=== PATIENT | female | born 1970 | race Caucasian/White ===

== ENCOUNTER 2022-07-27 04:31 | Inpatient (IN) | payer OTHER ==
[~2022-07-27] VITALS: Ht 165.1 cm; Wt 92.0 kg
[2022-07-27] VITALS (9 sets, daily range): BP systolic 98–162; BP diastolic 46–88
[2022-07-27 05:11] LABS: Basophils # (auto) 0.1 10 ^3/uL (0-0.2); Basophils % (auto) 0.9 % (0.0-2.0); Eosinophils # (auto) 0.1 10 ^3/uL (0-0.8); Eosinophils % (auto) 0.8 % (0.0-7.0); Hematocrit 42.8 % (36.0-46.0); Lymphocytes # (auto) 1.7 10 ^3/uL (0.4-5.4); Lymphocytes % (auto) 23.8 % (10.0-50.0); Mean Corpuscular Hemoglobin 30.8 pg (28.0-32.0); Monocytes # (auto) 0.5 10 ^3/uL (0-1.3); Monocytes % (auto) 6.3 % (0.0-12.0); Neutrophils # (auto) 4.9 10 ^3/uL (1.6-8.6); Neutrophils % (auto) 68.2 % (37.0-80.0); Nucleated Red Blood Cells % 0.1 %; Red Blood Cells 4.87 10^6/uL (4.0-5.20); Red Cell Distribution Width 14.5 % (11.8-14.3); White Blood Cell 7.2 10^3/uL (4.4-10.8)
[2022-07-27 05:34] LABS: Calcium 8.9 mg/dL (8.5-10.1)
[2022-07-27 05:39] LABS: BUN/Creatinine Ratio 25.4; Bilirubin, Total 0.5 mg/dL (0.2-1.0); Total Protein 7.1 g/dL (6.4-8.2)
[2022-07-27] MEDS ORDERED: HEPARIN SODIUM (PORCINE) 5000 UNITS/ML 1ML VIAL IV ONE ×2 (06:00)
[2022-07-27] MEDS ORDERED: CLOPIDOGREL BISULFATE 75 MG TAB PO ONE (06:00)
[2022-07-27] MEDS ORDERED: HEPARIN DRIP/D5W 100UNITS/ML 250 ML IV SCH ×2 (06:00→07:00)
[2022-07-27] MEDS ORDERED: NITROGLYCERIN 0.4 MG SL TAB SL ONE (06:00)
[2022-07-27 06:04] LABS: Urine Bacteria FEW /hpf (None Seen); Urine Blood Negative /uL (Negative); Urine Mucus FEW (None Seen); Urine Specific Gravity 1.015 (1.001-1.035); Urine WBC <1 /hpf (0 - 5)
[2022-07-27] MEDS ORDERED: CLOPIDOGREL BISULFATE 75 MG TAB ONE ×2 (06:15→06:16)
[2022-07-27] MEDS ORDERED: HEPARIN SODIUM (PORCINE) 5000 UNITS/ML 1ML VIAL ONE (06:24)
[2022-07-27] MEDS ORDERED: ANGIOMAX 250 MG VIAL IV ONE ×2 (06:24→10:00)
[2022-07-27] MEDS ORDERED: SODIUM CHL 0.9% 50 ML ONE ×2 (06:25→10:00)
[2022-07-27] MEDS ORDERED: VERAPAMIL 2.5MG/ML INJ 2ML VIAL IV ONE ×2 (06:25→09:34)
[2022-07-27] MEDS ORDERED: fentaNYL CITRATE 100 MCG/2 ML VL ONE (06:25)
[2022-07-27] MEDS ORDERED: LIDOCAINE 2%HCL (LOCAL ANESTH.) INJ 10ml MDV ONE ×2 (06:25→09:38)
[2022-07-27] MEDS ORDERED: HEPARIN IN NS 1000Units/500mL 0 ML ONE (06:25)
[2022-07-27] MEDS ORDERED: MIDAZOLAM HCL 2MG/2ML 2ml VIAL (1mg/ml) ONE (06:25)
[2022-07-27] MEDS ORDERED: IODIXANOL 320MG/ML 100ML BTL IV ONE ×3 (06:25→10:07)
[2022-07-27] MEDS ORDERED: ATROPINE SULF 1 MG/10ml SYR ONE (06:26)
[2022-07-27 07:42] LABS: INR 0.94 (0.9-1.15); Partial Thromboplastin Time 27.8 sec (24.6-33.4)
[2022-07-27] MEDS ORDERED: ASPirin 325 MG TAB PO ONE (08:30)
[2022-07-27] MEDS ORDERED: MORPHINE SULFATE INJ 2 MG/ml SYRG IV PRN (10:30)
[2022-07-27] MEDS ORDERED: NITROGLYCERIN 0.4 MG SL TAB SL PRN (10:30)
[2022-07-27] MEDS ORDERED: HYDROcodone-ACET 5/325MG TAB PO PRN (16:30)
[2022-07-27] MEDS: ACETAMINOPHEN 325 MG TAB PO PRN (17:14)
[2022-07-27] MEDS ORDERED: ATORVASTATIN 20 MG TAB PO SCH (22:00)
[2022-07-28 05:00] VITALS: BP 141/70
[2022-07-28 08:57] VITALS: BP 147/67
[2022-07-28] MEDS ORDERED: ASPirin 81 mg TAB PO SCH (10:00)
[2022-07-28] MEDS ORDERED: LISINOPRIL 5 MG TAB PO SCH (10:00)
[2022-07-28] MEDS ORDERED: dilTIAZem 120MG ER CAP PO SCH (10:00)
[2022-07-28] MEDS ORDERED: CLOPIDOGREL BISULFATE 75 MG TAB PO SCH (10:00)
[2022-07-28 10:57] LABS: BUN/Creatinine Ratio 14.3; Calcium 8.9 mg/dL (8.5-10.1); Potassium 3.8 mmol/L (3.5-5.1)
[2022-07-28 12:20] LABS: Cholesterol 225 mg/dL (< 200); HDL Cholesterol 108 mg/dL (40-59); LDL Cholesterol 112 mg/dL (< 100); Triglycerides 53 mg/dL (< 150)
[2022-07-28] MEDS ORDERED: SACU1TAB PO ×2 (13:07→14:44)
[2022-07-28] MEDS ORDERED: ATO40T PO ×2 (13:07→14:44)
[2022-07-28] MEDS ORDERED: ASPI-498 PO ×2 (13:07→14:44)
[2022-07-28] MEDS ORDERED: CLOP75TA28 PO ×2 (13:07→14:44)
[2022-07-28] MEDS ORDERED: CAR125T PO (13:07)
[2022-07-28] MEDS: ACETAMINOPHEN 325 MG TAB PO PRN (13:37)
[2022-07-28] MEDS ORDERED: CARV6.25 PO (14:44)
[2022-07-28 17:00] VITALS: BP 123/76
[2022-07-28] MEDS ORDERED: CARVEDILOL 12.5 MG TAB PO SCH (22:00)
[2022-07-29] MEDS ORDERED: SACUBITRIL-VALSARTAN 24mg/26mg TAB PO SCH (22:00)
== END 2022-07-28 18:45 | disposition home or self-care (01) | DRG 246 ==
LOC: ER 04:31 → CATH 1 09:32 → WEST WING 11:50 → TELE-WESTW 12:21
PROVIDERS: ADMIT Internal Medicine; ATTEND Internal Medicine
PROC: 4A023N7 Measurement of Cardiac Sampling and Pressure, Left Heart, Percutaneous Approach (ICD-10-PCS; principal; 2022-07-27)
PROC: 027034Z Dilation of Coronary Artery, One Artery with Drug-eluting Intraluminal Device, Percutaneous Approach (ICD-10-PCS; 2022-07-27)
PROC: B211YZZ Fluoroscopy of Multiple Coronary Arteries using Other Contrast (ICD-10-PCS; 2022-07-27)
PROC: B215YZZ Fluoroscopy of Left Heart using Other Contrast (ICD-10-PCS; 2022-07-27)
PROC: B240ZZ3 Ultrasonography of Single Coronary Artery, Intravascular (ICD-10-PCS; 2022-07-27)
DX: I21.4 Non-ST elevation (NSTEMI) myocardial infarction (principal); I50.31 Acute diastolic (congestive) heart failure; Z20.822 Contact with and (suspected) exposure to COVID-19; E78.00 Pure hypercholesterolemia, unspecified; E78.5 Hyperlipidemia, unspecified; E66.9 Obesity, unspecified; Z82.49 Family history of ischemic heart disease and other diseases of the circulatory system; Z68.33 Body mass index [BMI] 33.0-33.9, adult; I11.0 Hypertensive heart disease with heart failure
CPT/HCPCS: 36415; 71045; 80048; 80053; 80061; 81001; 83036; 83880; 84443; 84484; 85025; 85610; 85730; 87426; 92928; 92978; 93005; 93306; 93458; 96374; 99152; 99153; 99291; C1874; G0378; J2001; J2250; Q9967

== ENCOUNTER → 2022-09-26 | Outpatient (CLI) | payer OTHER ==
[~2022-09-26] MED LIST: ASPI-498 PO; ATO40T PO; CARV6.25 PO; CLOP75TA28 PO; SACU1TAB PO
== END | disposition home or self-care (01) ==
LOC: XYW 12:51
PROVIDERS: ATTEND Internal Medicine
DX: I08.3 Combined rheumatic disorders of mitral, aortic and tricuspid valves (principal); I25.10 Atherosclerotic heart disease of native coronary artery without angina pectoris
CPT/HCPCS: 93306

== ENCOUNTER → 2022-10-23 | Outpatient (CLI) | payer OTHER ==
[2022-10-23 09:04] LABS: Potassium 5.5 mmol/L (3.5-5.1)
[2022-10-23 09:14] LABS: Albumin 3.4 g/dL (3.4-5.0); BUN/Creatinine Ratio 17.5 (10.0-20.0); Calcium 9.3 mg/dL (8.5-10.1); Total Protein 7.2 g/dL (6.4-8.2)
== END | disposition home or self-care (01) ==
LOC: LAB 07:47
PROVIDERS: ATTEND Nurse Practitioner
DX: I10 Essential (primary) hypertension (principal); E78.5 Hyperlipidemia, unspecified
CPT/HCPCS: 36415; 80053; 80061

== ENCOUNTER → 2023-09-03 | Outpatient (CLI) | payer OTHER ==
[2023-09-03 09:05] LABS: Basophils # (auto) 0 10 ^3/uL (0-0.2); Basophils % (auto) 0.6 % (0.0-2.0); Eosinophils # (auto) 0.2 10 ^3/uL (0-0.8); Eosinophils % (auto) 4.6 % (0.0-7.0); Hematocrit 41.5 % (36.0-46.0); Hemoglobin 13.7 g/dL (12.2-16.2); Lymphocytes # (auto) 1.5 10 ^3/uL (0.4-5.4); Lymphocytes % (auto) 33.9 % (10.0-50.0); Mean Corpuscular Hemoglobin 29.7 pg (28.0-32.0); Mean Corpuscular Hgb Conc. 33.2 g/dL (32.0-36.0); Mean Corpuscular Volume 89.5 fL (80.0-100.0); Monocytes # (auto) 0.5 10 ^3/uL (0-1.3); Monocytes % (auto) 11.4 % (0.0-12.0); Neutrophils # (auto) 2.2 10 ^3/uL (1.6-8.6); Neutrophils % (auto) 49.5 % (37.0-80.0); Red Blood Cells 4.63 10^6/uL (4.0-5.20); Red Cell Distribution Width 13.5 % (11.8-14.3); White Blood Cell 4.4 10^3/uL (4.4-10.8)
[2023-09-03 09:22] LABS: Alanine Aminotransferase 40 U/L (7-40); Albumin 4.2 g/dL (3.2-4.8); Alkaline Phosphatase 90 U/L (46-116); Anion Gap 2 (5-15); Aspartate Aminotransferase 30 U/L (13-40); Bilirubin, Direct 0.2 mg/dL (<0.3); Blood Urea Nitrogen 13 mg/dL (9-23); Calcium 9.3 mg/dL (8.5-10.1); Carbon Dioxide 31 mmol/L (20-30); Chloride 108 mmol/L (98-107); Cholesterol 164 mg/dL (< 200); Glucose 88 mg/dL (74-106); HDL Cholesterol 72 mg/dL (40-59); LDL Cholesterol 76 mg/dL (< 100); Potassium 5.3 mmol/L (3.5-5.1); Sodium 141 mmol/L (136-145); Triglycerides 60 mg/dL (< 150)
[2023-09-03 09:23] LABS: Bilirubin, Total 0.7 mg/dL (0.2-1.0); Total Protein 6.3 g/dL (5.7-8.2)
== END | disposition home or self-care (01) ==
LOC: LAB 08:43
PROVIDERS: ATTEND Student in an Organized Health Care Education/Training Program
DX: I10 Essential (primary) hypertension (principal); E78.5 Hyperlipidemia, unspecified
CPT/HCPCS: 36415; 80053; 80061; 80076; 82947; 85025

== ENCOUNTER → 2023-10-07 | Outpatient (CLI) | payer OTHER ==
[~2023-10-07] VITALS: Ht 165.1 cm; Wt 101.6 kg
[2023-10-07] MEDS: ADENOSINE 85 MG in GIVE UN-DILUTED 0 ML IV STA (09:24)
== END | disposition home or self-care (01) ==
LOC: XYW 08:04
PROVIDERS: ATTEND Student in an Organized Health Care Education/Training Program
DX: I25.118 Atherosclerotic heart disease of native coronary artery with other forms of angina pectoris (principal); R07.9 Chest pain, unspecified; E78.5 Hyperlipidemia, unspecified; I10 Essential (primary) hypertension; Z95.5 Presence of coronary angioplasty implant and graft
CPT/HCPCS: 78452; 93017; A9500; J0153